=== PATIENT | male | born 1990 | race Caucasian/White ===

== ENCOUNTER 2016-08-15 06:31 | Emergency (ER) | payer OTHER ==
[~2016-08-15] VITALS: Ht 180.3 cm; Wt 77.1 kg
[2016-08-15 07:05] VITALS: BP 151/91
[2016-08-15] MEDS ORDERED: AMOXICILLIN 500 MG CAP PO ONE (07:30)
[2016-08-15] MEDS ORDERED: predniSONE 20 MG TAB PO ONE (07:30)
[2016-08-15] MEDS ORDERED: LIDO1SOL7 MT (07:46)
[2016-08-15] MEDS ORDERED: AMOX400S2 PO (07:46)
[2016-08-15] MEDS ORDERED: PRED5SOL10 PO (07:46)
== END 2016-08-15 07:50 | disposition home or self-care (01) ==
LOC: M ED 07:34
DX: K12.2 Cellulitis and abscess of mouth (principal)